=== PATIENT | female | born 2000 | race American Indian/Alaskan Native ===

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

== ENCOUNTER 2019-02-03 07:40 | Emergency (ER) | payer MEDICAID, OTHER ==
[2019-02-03 08:12] VITALS: BP 141/86
[2019-02-03] MEDS ORDERED: DUONEB *Not for PRN Use IH ONE (08:34)
--- NOTE | 2019-02-03 08:51 | Emergency Department Report ---
ED General Adult HPI - General Chief complaint: Adult Asthma Stated complaint: SAGE Time Seen by Provider: 02/03/19 08:27 Source: patient, EMS Mode of arrival: Stretcher Limitations: No Limitations - History of Present Illness Initial comments: The patient presents to emergency department for asthma attack. Patient has a history of asthma stating yesterday she began to have difficulty breathing. Patient denies adelso chest pain. Before arrival to the ED the patient had a DuoNeb breathing treatment, Solu-Medrol, and magnesium. Patient states she is greatly improved upon presentation. Patient also developed pain, headache. -: Sudden Radiation: non-radiation Severity scale (0 -10): 1 Quality: aching Consistency: constant Improves with: medication Worsens with: none Associated Symptoms: denies other symptoms Treatments Prior to Arrival: none - Related Data Previous Rx's Medication Instructions Recorded Last Taken Type Azithromycin [Zithromax] 250 mg PO DAILY #1 pkg 12/24/15 Unknown Rx Loratadine [Claritin] 10 mg PO DAILY #30 tablet 12/24/15 Unknown Rx Promethazine /Codeine 5 ml PO Q6H PRN #80 ml 12/24/15 Unknown Rx [Phenergan/Codeine 6.25-10 mg/5 ml] Clindamycin [Clindamycin CAP] 300 mg PO ONCE #30 capsule 08/05/16 Unknown Rx Ibuprofen [Motrin 600 MG tab] 600 mg PO Q8H PRN #20 tablet 08/05/16 Unknown Rx Albuterol Sulfate [Ventolin Hfa] 1 puff IH Q4H PRN #1 hfa.aer.ad 07/27/17 Unknown Rx Naproxen 500 mg PO BID PRN #30 tablet 07/27/17 Unknown Rx Sulfamethoxazole/Trimethoprim 1 each PO BID #14 tablet 07/27/17 Unknown Rx [Bactrim DS TAB] ALBUTEROL Inhaler (OR & NICU) 2 puff IH Q4HR PRN #1 inhalation 02/03/19 Unknown Rx [ProAir HFA Inhaler] predniSONE [Deltasone] 20 mg PO DAILY #15 tablet 02/03/19 Unknown Rx Allergies Allergy/AdvReac Type Severity Reaction Status Date / Time No Known Allergies Allergy Verified 02/03/19 08:00 ED Review of Systems ROS: Stated complaint: SAGE Other details as noted in HPI Comment: All other systems reviewed and negative Constitutional: denies: chills, fever Eyes: denies: eye pain, eye discharge, vision change ENT: denies: ear pain, throat pain Respiratory: shortness of breath, wheezing. denies: cough Cardiovascular: denies: chest pain, palpitations Endocrine: no symptoms reported Gastrointestinal: denies: abdominal pain, nausea, diarrhea Genitourinary: denies: urgency, dysuria, discharge Musculoskeletal: denies: back pain, joint swelling, arthralgia Skin: denies: rash, lesions Neurological: denies: headache, weakness, paresthesias Psychiatric: denies: anxiety, depression Hematological/Lymphatic: denies: easy bleeding, easy bruising ED Past Medical Hx - Past Medical History Hx Psychiatric Treatment: Yes (anxiety, bipolar) Hx Asthma: Yes Additional medical history: bronchitis, Right hand injury, Sickle Cell trait - Social History Smoking Status: Current Some Day Smoker Substance Use Type: Alcohol, Marijuana - Medications Home Medications: Home Medications Medication Instructions Recorded Confirmed Last Taken Type Azithromycin [Zithromax] 250 mg PO DAILY #1 pkg 12/24/15 Unknown Rx Loratadine [Claritin] 10 mg PO DAILY #30 tablet 12/24/15 Unknown Rx Promethazine /Codeine 5 ml PO Q6H PRN #80 ml 12/24/15 Unknown Rx [Phenergan/Codeine 6.25-10 mg/5 ml] Clindamycin [Clindamycin CAP] 300 mg PO ONCE #30 capsule 08/05/16 Unknown Rx Ibuprofen [Motrin 600 MG tab] 600 mg PO Q8H PRN #20 tablet 08/05/16 Unknown Rx Albuterol Sulfate [Ventolin Hfa] 1 puff IH Q4H PRN #1 hfa.aer.ad 07/27/17 Unknown Rx Naproxen 500 mg PO BID PRN #30 tablet 07/27/17 Unknown Rx Sulfamethoxazole/Trimethoprim 1 each PO BID #14 tablet 07/27/17 Unknown Rx [Bactrim DS TAB] ALBUTEROL Inhaler (OR & NICU) 2 puff IH Q4HR PRN #1 inhalation 02/03/19 Unknown Rx [ProAir HFA Inhaler] predniSONE [Deltasone] 20 mg PO DAILY #15 tablet 02/03/19 Unknown Rx ED Physical Exam - General Limitations: No Limitations General appearance: alert, in no apparent distress - Head Head exam: Present: atraumatic, normocephalic - Eye Eye exam: Present: normal appearance, PERRL, EOMI - ENT ENT exam: Present: mucous membranes moist - Neck Neck exam: Present: normal inspection - Respiratory Respiratory exam: Present: wheezes. Absent: respiratory distress - Cardiovascular Cardiovascular Exam: Present: regular rate, normal rhythm. Absent: systolic murmur, diastolic murmur, rubs, gallop - GI/Abdominal GI/Abdominal exam: Present: soft, normal bowel sounds. Absent: distended, tenderness - Extremities Exam Extremities exam: Present: normal inspection - Back Exam Back exam: Present: normal inspection - Neurological Exam Neurological exam: Present: alert, oriented X3, CN II-XII intact. Absent: motor sensory deficit - Psychiatric Psychiatric exam: Present: normal affect, normal mood - Skin Skin exam: Present: warm, dry, intact, normal color. Absent: rash ED Course Vital Signs 02/03/19 02/03/19 08:00 08:20 Temperature 98.4 F Pulse Rate 98 H Respiratory 24 18 Rate Blood Pressure 141/86 O2 Sat by Pulse 96 Oximetry ED Medical Decision Making - Medical Decision Making Repeat DuoNeb done in the ED Critical care attestation.: If time is entered above; I have spent that time in minutes in the direct care of this critically ill patient, excluding procedure time. ED Disposition Clinical Impression: Asthma attack Disposition: - TO HOME OR SELFCARE Is pt being admited?: No Does the pt Need Aspirin: No Condition: Stable Instructions: Asthma (ED) Additional Instructions: return if worse Referrals: PRIMARY CARE, [Referring] - 3-5 Days [facility] [Provider Group] - 3-5 Days [facility] [Provider Group] - 3-5 Days Time of Disposition: 10:26
== END 2019-02-03 11:14 | disposition home or self-care (01) ==
LOC: ED 07:40
DX: J45.909 Unspecified asthma, uncomplicated (principal); F17.200 Nicotine dependence, unspecified, uncomplicated; F12.10 Cannabis abuse, uncomplicated
CPT/HCPCS: 93005; 93010; 94640

== ENCOUNTER 2019-08-10 13:54 | Observation (INO) | payer MEDICAID, OTHER ==
[2019-08-10] MEDS ORDERED: SODIUM CHLORIDE 0.9% 1000 ML 1,000 ML IV ONE ×2 (14:54→16:20)
--- NOTE | 2019-08-10 14:57 | Event Note ---
ED Screening Note Date of service: 08/10/19 Time: 14:56 ED Screening Note: Pt complains of lower abdominal pain and heavy vaginal bleeding x today states 12 weeks denies urinary symptoms Hx of ectopic 2 years ago bleeding through 2 diapers today This initial assessment/diagnostic orders/clinical plan/treatment(s) is/are subject to change based on patients health status, clinical progression and re- assessment by fellow clinical providers in the ED. Further treatment and workup at subsequent clinical providers discretion. Patient/guardian urged not to elope from the ED as their condition may be serious if not clinically assessed and managed. Initial orders include:
--- NOTE | 2019-08-10 16:20 | Ultrasound Report ---
ULTRASOUND OBSTETRIC INDICATION / CLINICAL INFORMATION: possible miscarriage/ectopic. TECHNIQUE: Transabdominal and Transvaginal. COMPARISON: None available. FINDINGS: No intrauterine visualized. Uterus measures 12.3 x 3.9 x 5.2 cm. Thickened heterogeneous en dometrial complex measuring 3.3 cm in transverse diameter with small amount of hemorrhage/fluid is se en within the endometrial canal. ADNEXA: Right ovary appears within normal limits without cyst or mass measuring 2.9 x 1.6 x 2.4 cm. L eft ovary appears within normal limits measuring 3.2 x 1.4 x 2.2 cm. FREE FLUID: None. ADDITIONAL FINDINGS: Normal color Doppler and spectral waveforms are seen within both ovaries. IMPRESSION: 1. No intrauterine . 2. Moderately thickened complex endometrial stripe likely secondary to recent miscarriage. Clinical c orrelation with follow-up beta-hCG and ultrasound is recommended. Signer Name: Carloz Jenkins MD Signed: 08/10/2019 4:16 PM Workstation Name: [id number]
[2019-08-10 16:58] LABS: Alanine Aminotransferase 7 units/L (7-56); Albumin 3.9 g/dL (3.9-5); BUN/Creatinine Ratio 14; Blood Urea Nitrogen 7 mg/dL (7-17); Calcium 9.1 mg/dL (8.4-10.2); Hemolysis Index 87
[2019-08-10 17:11] LABS: Hematocrit 38.8 % (30.3-42.9); Hemoglobin 12.5 gm/dl (10.1-14.3); Mean Corpuscular HGB Conc 32 % (30-34); Mean Corpuscular Volume 73 fl (79-97); Platelet Count 299 K/mm3 (140-440); Red Blood Count 5.36 M/mm3 (3.65-5.03); Red Cell Distribution Width 15.4 % (13.2-15.2)
[2019-08-10 17:12] LABS: Bilirubin,Direct < 0.2 mg/dL (0-0.2)
[2019-08-10 17:23] LABS: INR 1.29 (0.87-1.13)
[2019-08-10 17:24] LABS: Partial Thromboplastin Time 40.5 Sec. (24.2-36.6)
[2019-08-10] MEDS ORDERED: miSOPROStol 25 MCG TAB VG ONE (17:56)
[2019-08-10] MEDS ORDERED: HYDROcodone/ACETAMINOPHEN 5-325 MG TAB PO ONE ×2 (17:58→19:36)
--- NOTE | 2019-08-10 18:02 | Emergency Department Report ---
ED HPI - General Chief complaint: Vaginal Bleeding Stated complaint: MISCARRIAGE/VAGINAL BLEEDING Time Seen by Provider: 08/10/19 16:12 Source: patient Mode of arrival: Ambulatory Limitations: No Limitations - History of Present Illness Initial comments: Patient is a 19-year-old female who is presenting with heavy vaginal bleeding for the past 2 days. 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 She has an appointment to see PROFESSOR OF OCEANOGRAPHY in 1 month. The patient has not had care so far. Patient states she has some lower abdominal cramping and she's passed multiple clots at home. Patient states she has some weakness and dizziness as well. She denies fevers chills dysuria chest pain or shortness of breath. - Related Data Previous Rx's Medication Instructions Recorded Last Taken Type Azithromycin [Zithromax] 250 mg PO DAILY #1 pkg 12/24/15 Unknown Rx Loratadine [Claritin] 10 mg PO DAILY #30 tablet 12/24/15 Unknown Rx Promethazine /Codeine 5 ml PO Q6H PRN #80 ml 12/24/15 Unknown Rx [Phenergan/Codeine 6.25-10 mg/5 ml] Clindamycin [Clindamycin CAP] 300 mg PO ONCE #30 capsule 08/05/16 Unknown Rx Ibuprofen [Motrin 600 MG tab] 600 mg PO Q8H PRN #20 tablet 08/05/16 Unknown Rx Albuterol Sulfate [Ventolin Hfa] 1 puff IH Q4H PRN #1 hfa.aer.ad 07/27/17 Unknown Rx Naproxen 500 mg PO BID PRN #30 tablet 07/27/17 Unknown Rx Sulfamethoxazole/Trimethoprim 1 each PO BID #14 tablet 07/27/17 Unknown Rx [Bactrim DS TAB] ALBUTEROL Inhaler (OR & NICU) 2 puff IH Q4HR PRN #1 inhalation 02/03/19 Unknown Rx [ProAir HFA Inhaler] predniSONE [Deltasone] 20 mg PO DAILY #15 tablet 02/03/19 Unknown Rx Allergies Allergy/AdvReac Type Severity Reaction Status Date / Time No Known Allergies Allergy Verified 02/03/19 08:00 ED Review of Systems ROS: Stated complaint: MISCARRIAGE/VAGINAL BLEEDING Other details as noted in HPI Comment: All other systems reviewed and negative ED Past Medical Hx - Past Medical History Hx Psychiatric Treatment: Yes (anxiety, bipolar) Hx Asthma: Yes Additional medical history: bronchitis, Right hand injury - Social History Smoking Status: Current Every Day Smoker Substance Use Type: None - Medications Home Medications: Home Medications Medication Instructions Recorded Confirmed Last Taken Type Azithromycin [Zithromax] 250 mg PO DAILY #1 pkg 12/24/15 Unknown Rx Loratadine [Claritin] 10 mg PO DAILY #30 tablet 12/24/15 Unknown Rx Promethazine /Codeine 5 ml PO Q6H PRN #80 ml 12/24/15 Unknown Rx [Phenergan/Codeine 6.25-10 mg/5 ml] Clindamycin [Clindamycin CAP] 300 mg PO ONCE #30 capsule 08/05/16 Unknown Rx Ibuprofen [Motrin 600 MG tab] 600 mg PO Q8H PRN #20 tablet 08/05/16 Unknown Rx Albuterol Sulfate [Ventolin Hfa] 1 puff IH Q4H PRN #1 hfa.aer.ad 07/27/17 Unknown Rx Naproxen 500 mg PO BID PRN #30 tablet 07/27/17 Unknown Rx Sulfamethoxazole/Trimethoprim 1 each PO BID #14 tablet 07/27/17 Unknown Rx [Bactrim DS TAB] ALBUTEROL Inhaler (OR & NICU) 2 puff IH Q4HR PRN #1 inhalation 02/03/19 Unknown Rx [ProAir HFA Inhaler] predniSONE [Deltasone] 20 mg PO DAILY #15 tablet 02/03/19 Unknown Rx ED Physical Exam - General Limitations: No Limitations General appearance: alert, lethargic - Head Head exam: Present: atraumatic, normocephalic - Eye Eye exam: Present: normal appearance, PERRL, EOMI - ENT ENT exam: Present: mucous membranes moist - Neck Neck exam: Present: normal inspection - Respiratory Respiratory exam: Present: normal lung sounds bilaterally. Absent: respiratory distress, wheezes, rales, rhonchi - Cardiovascular Cardiovascular Exam: Present: regular rate, normal rhythm. Absent: systolic murmur, diastolic murmur, rubs, gallop - GI/Abdominal GI/Abdominal exam: Present: soft, normal bowel sounds. Absent: distended, tenderness, guarding, rebound - External exam: Present: normal external exam Speculum exam: Present: vaginal bleeding (patient with a large clot in the vagi nal vault which was removed. There is a probable clot at the os. There is a slight trickle of blood from the os after the clot was removed but the vaginal vault is not filling up very fast after the clot was removed) - Extremities Exam Extremities exam: Present: normal inspection - Back Exam Back exam: Present: normal inspection - Neurological Exam Neurological exam: Present: alert, oriented X3 - Psychiatric Psychiatric exam: Present: normal affect, normal mood - Skin Skin exam: Present: warm, dry, intact, normal color. Absent: rash ED Course Vital Signs 08/10/19 08/10/19 08/10/19 14:15 17:22 18:17 Temperature 98.2 F Pulse Rate 131 H 109 H 94 H Respiratory 18 12 18 Rate Blood Pressure 94/61 Blood Pressure 120/78 110/62 [Left] O2 Sat by Pulse 98 100 99 Oximetry - Reevaluation(s) Reevaluation #1: 08/10/19 17:58 Dr. Crandall has been consulted at this time. Patient's blood pressure and heart rate are improving. Dr. Crandall stated that the patient should receive Cytotec vaginally and we should recheck the hemoglobin. We'll continue to monitor the patient. Reevaluation #2: 08/10/19 19:45 Patient's hemoglobin dropped 2 g and approximate 2 hours. Patient's continued to have some clotting in and now the patient is also complaining of some i ncreased lower abdominal discomfort. The patient be admitted to mother-baby. Patient will be monitored and may be a candidate for a D&C ED Medical Decision Making - Lab Data Result diagrams: 08/10/19 18:24 08/10/19 15:55 Lab Results 08/10/19 08/10/19 08/10/19 Range/Units 15:55 15:55 15:55 WBC 6.4 (4.5-11.0) K/mm3 RBC 5.36 H (3.65-5.03) M/mm3 Hgb 12.5 (10.1-14.3) gm/dl Hct 38.8 (30.3-42.9) % MCV 73 L (79-97) fl MCH 23 L (28-32) pg MCHC 32 (30-34) % RDW 15.4 H (13.2-15.2) % Plt Count 299 (140-440) K/mm3 PT 15.9 H (12.2-14.9) Sec. INR 1.29 H (0.87-1.13) APTT 40.5 H (24.2-36.6) Sec. Sodium 135 L (137-145) mmol/L Potassium 4.3 (3.6-5.0) mmol/L Chloride 102.5 (98-107) mmol/L Carbon Dioxide 20 L (22-30) mmol/L Anion Gap 17 mmol/L BUN 7 (7-17) mg/dL Creatinine 0.5 L (0.7-1.2) mg/dL Estimated GFR > 60 ml/min BUN/Creatinine Ratio 14 % Glucose 88 (65-100) mg/dL Calcium 9.1 (8.4-10.2) mg/dL Total Bilirubin 0.50 (0.1-1.2) mg/dL Direct Bilirubin < 0.2 (0-0.2) mg/dL Indirect Bilirubin 0.3 mg/dL AST 20 (5-40) units/L ALT 7 (7-56) units/L Alkaline Phosphatase 57 (35-129) units/L Total Protein 6.6 (6.3-8.2) g/dL Albumin 3.9 (3.9-5) g/dL Albumin/Globulin Ratio 1.4 % HCG, Quant (0-4) mIU/mL Blood Type 08/10/19 08/10/19 Range/Units 15:55 Unknown WBC (4.5-11.0) K/mm3 RBC (3.65-5.03) M/mm3 Hgb (10.1-14.3) gm/dl Hct (30.3-42.9) % MCV (79-97) fl MCH (28-32) pg MCHC (30-34) % RDW (13.2-15.2) % Plt Count (140-440) K/mm3 PT (12.2-14.9) Sec. INR (0.87-1.13) APTT (24.2-36.6) Sec. Sodium (137-145) mmol/L Potassium (3.6-5.0) mmol/L Chloride (98-107) mmol/L Carbon Dioxide (22-30) mmol/L Anion Gap mmol/L BUN (7-17) mg/dL Creatinine (0.7-1.2) mg/dL Estimated GFR ml/min BUN/Creatinine Ratio % Glucose (65-100) mg/dL Calcium (8.4-10.2) mg/dL Total Bilirubin (0.1-1.2) mg/dL Direct Bilirubin (0-0.2) mg/dL Indirect Bilirubin mg/dL AST (5-40) units/L ALT (7-56) units/L Alkaline Phosphatase (35-129) units/L Total Protein (6.3-8.2) g/dL Albumin (3.9-5) g/dL Albumin/Globulin Ratio % HCG, Quant 5370 H (0-4) mIU/mL Blood Type B POSITIVE - Radiology Data ULTRASOUND OBSTETRIC INDICATION / CLINICAL INFORMATION: possible miscarriage/ectopic. TECHNIQUE: Transabdominal and Transvaginal. COMPARISON: None available. FINDINGS: No intrauterine visualized. Uterus measures 12.3 x 3.9 x 5.2 cm. Thickened heterogeneous endometrial complex measuring 3.3 cm in transverse diameter with small amount of hemorrhage/fluid is seen within the endometrial canal. ADNEXA: Right ovary appears within normal limits without cyst or mass measuring 2.9 x 1.6 x 2.4 cm. Left ovary appears within normal limits measuring 3.2 x 1.4 x 2.2 cm. FREE FLUID: None. ADDITIONAL FINDINGS: Normal color Doppler and spectral waveforms are seen within both ovaries. IMPRESSION: 1. No intrauterine . 2. Moderately thickened complex endometrial stripe likely secondary to recent miscarriage. Clinical correlation with follow-up beta-hCG and ultrasound is recommended. Signer Name: Carloz Jenkins MD Signed: 08/10/2019 4:16 PM Critical Care Time: Yes (30) Critical care attestation.: If time is entered above; I have spent that time in minutes in the direct care of this critically ill patient, excluding procedure time. ED Disposition Clinical Impression: Spontaneous miscarriage, Hypotension due to blood loss Disposition: OP ADMIT IP TO THIS HOSP Is pt being admited?: Yes Does the pt Need Aspirin: No Condition: Stable Time of Disposition: 19:46
[2019-08-10 19:08] LABS: Hematocrit 34.4 % (30.3-42.9); Hemoglobin 10.6 gm/dl (10.1-14.3)
[2019-08-10] MEDS ORDERED: SODIUM CHLORIDE 0.9% 1000 ML 1,000 ML IV SCH (20:00)
[2019-08-10] MEDS ORDERED: LACTATED RINGERS 1,000 ML IV SCH (23:00)
--- NOTE | 2019-08-10 23:29 | History and Physical Report ---
History of Present Illness Date of examination: 08/10/19 Date of admission: 08/10/19 19:47 Chief complaint: Miscarriage History of present illness: requested that CNM see patient. Patient is a 19 [address] patient of Dr. Crandall that was admitted from the ED this evening after first trimester miscarriage. Patient states that her vaginal bleeding began 2 days ago and was accompanied by clotting and cramping. Patient reports that she passed a large amount of clots and blood vaginally prior to coming to ED. Patient denies fever, chills, nausea or vomiting. She denies foul smelling vaginal discharge. Dr. Crandall states patient has had a miscarriage and is being admitted overnight tonight to observe for bleeding. 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 denies: prescription drug abuse, IV drug use - Obstetrical History Expected Date of Delivery: 02/05/20 Actual Gestation: 14 Week(s) 3 Day(s) : 2 Para: 0 Hx # Term Pregnancies: 0 Number of Pregnancies: 0 Spontaneous Abortions: 2 (2 SABs ) Induced : 0 Number of Living Children: 0 Medications and Allergies Allergies Allergy/AdvReac Type Severity Reaction Status Date / Time No Known Allergies Allergy Verified 02/03/19 08:00 Home Medications Medication Instructions Recorded Confirmed Last Taken Type Azithromycin [Zithromax] 250 mg PO DAILY #1 pkg 12/24/15 08/10/19 Unknown Rx Loratadine [Claritin] 10 mg PO DAILY #30 tablet 12/24/15 Unknown Rx Promethazine /Codeine 5 ml PO Q6H PRN #80 ml 12/24/15 Unknown Rx [Phenergan/Codeine 6.25-10 mg/5 ml] Clindamycin [Clindamycin CAP] 300 mg PO ONCE #30 capsule 08/05/16 08/10/19 U nknown Rx Ibuprofen [Motrin 600 MG tab] 600 mg PO Q8H PRN #20 tablet 08/05/16 Unknown Rx Albuterol Sulfate [Ventolin Hfa] 1 puff IH Q4H PRN #1 hfa.aer.ad 07/27/17 Unknown Rx Naproxen 500 mg PO BID PRN #30 tablet 07/27/17 Unknown Rx Sulfamethoxazole/Trimethoprim 1 each PO BID #14 tablet 07/27/17 Unknown Rx [Bactrim DS TAB] ALBUTEROL Inhaler (OR & NICU) 2 puff IH Q4HR PRN #1 inhalation 02/03/19 Unknown Rx [ProAir HFA Inhaler] predniSONE [Deltasone] 20 mg PO DAILY #15 tablet 02/03/19 Unknown Rx Active Meds: Active Medications Acetaminophen/Hydrocodone Bitart ([place] 5/325) 1 each PO Q6H PRN PRN Reason: Pain, Moderate (4-6) Lactated Ringer's (Lactated Ringers) 1,000 mls @ 125 mls/hr IV DIRECT ALEXEY Misoprostol (Cytotec) 200 mcg PO Q8HR ALEXEY Review of Systems All systems: negative (vaginal bleeding with passage of clots, pelvic cramping) - Vital Signs Vital signs: Vital Signs Temp Pulse Resp BP Pulse Ox 98.2 F 131 H 18 94/61 98 08/10/19 14:15 08/10/19 14:15 08/10/19 14:15 08/10/19 14:15 08/10/19 14:15 Temp Pulse Resp BP Pulse Ox 98.2 F 96 H 18 108/59 100 08/10/19 21:24 08/10/19 21:24 08/10/19 21:24 08/10/19 21:24 08/10/19 21:24 - Physical Exam Cardiovascular: Regular rate, Normal S1, Normal S2, No murmurs Lungs: Positive: Clear to auscultation Abdomen: Positive: normal appearance, soft, normal bowel sounds. Negative: distention, tenderness, guarding, rigidity Genitourinary (Female): Positive: other (patient had done at ED this evening) Extremities: Positive: normal. Negative: tenderness, edema Results Result Diagrams: 08/10/19 18:24 08/10/19 15:55 Abnormal lab results 08/10/19 08/10/19 08/10/19 Range/Units 15:55 15:55 15:55 RBC 5.36 H (3.65-5.03) M/mm3 MCV 73 L (79-97) fl MCH 23 L (28-32) pg RDW 15.4 H (13.2-15.2) % PT 15.9 H (12.2-14.9) Sec. INR 1.29 H (0.87-1.13) APTT 40.5 H (24.2-36.6) Sec. Sodium 135 L (137-145) mmol/L Carbon Dioxide 20 L (22-30) mmol/L Creatinine 0.5 L (0.7-1.2) mg/dL HCG, Quant (0-4) mIU/mL 08/10/19 Range/Units Unknown RBC (3.65-5.03) M/mm3 MCV (79-97) fl MCH (28-32) pg RDW (13.2-15.2) % PT (12.2-14.9) Sec. INR (0.87-1.13) APTT (24.2-36.6) Sec. Sodium (137-145) mmol/L Carbon Dioxide (22-30) mmol/L Creatinine (0.7-1.2) mg/dL HCG, Quant 5370 H (0-4) mIU/mL All other labs normal. Assessment and Plan A: Spontaneous . Anemia. P: Admit for observation overnight per Dr. Crandall's order. Pain medication as needed. IV hydration. Dr. Crandall orders PO Cytotec (order put in by RN).
[2019-08-10] MEDS ORDERED: IBUPROFEN 800 MG TAB PO PRN (23:34)
[2019-08-11] MEDS: miSOPROStol 200 MCG TAB PO SCH ×2 (02:08→09:13)
[2019-08-11] MEDS: HYDROcodone/ACETAMINOPHEN 5-325 MG TAB PO PRN ×2 (04:03→13:34)
--- NOTE | 2019-08-11 13:25 | Progress Note ---
Subjective - Subjective Date of service: 08/11/19 Principal diagnosis: incomplete Interval history: Patietn seen and examined no VB no pelvic pain toelrating PO, afebril AAOx3 SP Cytotec [id number] doses PO for incomplete US reviewed, no POC, no tissues, +ve blood clot in endometrium otherwise WNL VSS RRR LCTAb Abd: Soft, NT pelvic deferred Ext WNL LAbs and US reviewed A: Incomplete P: d/c home Cytotec 200mcg PO Q8 hours X4 doses Follow up office in one week [place]/ibuprofen for pain meets discharge criteria Yasmin Harrison MD Objective - Vital Signs Vital Signs: Vital Signs - 12hr 08/11/19 08/11/19 08/11/19 03:53 08:10 11:59 Temperature 98.8 F 98.5 F 98.4 F Pulse Rate 98 H 93 H 91 H Respiratory 20 18 18 Rate Blood Pressure 111/66 138/58 105/57 O2 Sat by Pulse 99 98 100 Oximetry - Labs Labs: Abnormal Labs 08/10/19 08/10/19 08/10/19 15:55 15:55 15:55 RBC 5.36 H MCV 73 L MCH 23 L RDW 15.4 H PT 15.9 H INR 1.29 H APTT 40.5 H Sodium 135 L Carbon Dioxide 20 L Creatinine 0.5 L HCG, Quant 08/10/19 Unknown RBC MCV MCH RDW PT INR APTT Sodium Carbon Dioxide Creatinine HCG, Quant 5370 H Laboratory Results - last 24 hr 08/10/19 08/10/19 08/10/19 15:55 15:55 15:55 WBC 6.4 RBC 5.36 H Hgb 12.5 Hct 38.8 MCV 73 L MCH 23 L MCHC 32 RDW 15.4 H Plt Count 299 PT 15.9 H INR 1.29 H APTT 40.5 H Sodium 135 L Potassium 4.3 Chloride 102.5 Carbon Dioxide 20 L Anion Gap 17 BUN 7 Creatinine 0.5 L Estimated GFR > 60 BUN/Creatinine Ratio 14 Glucose 88 Calcium 9.1 Total Bilirubin 0.50 Direct Bilirubin < 0.2 Indirect Bilirubin 0.3 AST 20 ALT 7 Alkaline Phosphatase 57 Total Protein 6.6 Albumin 3.9 Albumin/Globulin Ratio 1.4 HCG, Quant Blood Type Antibody Screen 08/10/19 08/10/19 08/10/19 15:55 18:24 Unknown WBC RBC Hgb 10.6 Hct 34.4 MCV MCH MCHC RDW Plt Count PT INR APTT Sodium Potassium Chloride Carbon Dioxide Anion Gap BUN Creatinine Estimated GFR BUN/Creatinine Ratio Glucose Calcium Total Bilirubin Direct Bilirubin Indirect Bilirubin AST ALT Alkaline Phosphatase Total Protein Albumin Albumin/Globulin Ratio HCG, Quant 5370 H Blood Type B POSITIVE Antibody Screen Negative
[2019-08-11 17:59] VITALS: BP 96/49
== END 2019-08-11 17:10 | disposition home or self-care (01) ==
LOC: ED 13:54 → OB 19:47
PROVIDERS: ADMIT Obstetrics & Gynecology; ATTEND Obstetrics & Gynecology
DX: O03.9 Complete or unspecified spontaneous abortion without complication (principal); I95.89 Other hypotension; O99.012 Anemia complicating pregnancy, second trimester; J45.909 Unspecified asthma, uncomplicated; F17.200 Nicotine dependence, unspecified, uncomplicated; Z3A.14 14 weeks gestation of pregnancy
CPT/HCPCS: 36415; 76801; 76817; 80048; 80076; 84702; 85014; 85018; 85027; 85610; 85730; 86850; 86900; 86901; 96360; 96361; 99291; G0378; J7030; J7120; 76805

== ENCOUNTER 2021-07-23 12:50 | Emergency (ER) | payer SELFPAY ==
[2021-07-23 12:58] VITALS: BP 131/86
[2021-07-23] MEDS ORDERED: ONDANSETRON 4 MG/2 ML INJ IV ONE (13:55)
[2021-07-23] MEDS ORDERED: KETOROLAC 30 MG/1 ML INJ IV ONE (13:55)
[2021-07-23] MEDS ORDERED: SODIUM CHLORIDE 0.9% 1000 ML 1,000 ML IV ONE (13:56)
[2021-07-23 14:35] LABS: Hematocrit 40.3 % (30.3-42.9); Hemoglobin 13.5 gm/dl (10.1-14.3); Mean Corpuscular HGB Conc 34 % (30-34); Platelet Count 329 K/mm3 (140-440); Red Blood Count 5.91 M/mm3 (3.65-5.03); Red Cell Distribution Width 13.8 % (13.2-15.2)
[2021-07-23 14:47] LABS: Mean Corpuscular Volume 68 fl (79-97)
--- NOTE | 2021-07-23 14:58 | Emergency Department Report ---
ED Abdominal Pain HPI - General Chief Complaint: Abdominal Pain Stated Complaint: ABD PAIN,SICK Time Seen by Provider: 07/23/21 13:16 Source: EMS Mode of arrival: Stretcher Limitations: No Limitations - History of Present Illness Initial Comments: 21-year-old female presents to ED with vomiting and left flank pain. Patient states 5 days ago she took some "bad ecstasy "and began feeling bad afterward. Patient states she has been having nausea, vomiting, diarrhea, and left flank pain. Patient denies fever, urinary frequency, dysuria. MD Complaint: flank pain -: days(s) (5) Location: L flank Radiation: none Migration to: no migration Severity: moderate Severity scale (0 -10): 10 Quality: aching Consistency: constant Improves With: nothing Worsens With: nothing Associated Symptoms: nausea, vomiting, diarrhea. denies: fever, dysuria - Related Data Previous Rx's Medication Instructions Recorded Last Taken Type Azithromycin [Zithromax] 250 mg PO DAILY #1 pkg 12/24/15 Unknown Rx Loratadine (Nf) [Claritin] 10 mg PO DAILY #30 tablet 12/24/15 Unknown Rx Promethazine /Codeine 5 ml PO Q6H PRN #80 ml 12/24/15 Unknown Rx [Phenergan/Codeine 6.25-10 mg/5 ml] Clindamycin [Clindamycin CAP] 300 mg PO ONCE #30 capsule 08/05/16 Unknown Rx Ibuprofen [Motrin 600 MG tab] 600 mg PO Q8H PRN #20 tablet 08/05/16 Unknown Rx Albuterol Sulfate [Ventolin Hfa] 1 puff IH Q4H PRN #1 hfa.aer.ad 07/27/17 Unknown Rx Naproxen 500 mg PO BID PRN #30 tablet 07/27/17 Unknown Rx Sulfamethoxazole/Trimethoprim 1 each PO BID #14 tablet 07/27/17 Unknown Rx [Bactrim DS TAB] Albuterol Mdi (or & Nicu Only) 2 puff IH Q4HR PRN #1 inhalation 02/03/19 Unknown Rx [ProAir HFA Inhaler] predniSONE [Deltasone] 20 mg PO DAILY #15 tablet 02/03/19 Unknown Rx HYDROcodone/APAP 5-325 [[place] 1 each PO Q6H PRN #30 tablet 08/11/19 Unknown Rx 5-325 mg TAB] Ibuprofen [Motrin 800 MG tab] 800 mg PO Q8H PRN #30 tablet 08/11/19 Unknown Rx miSOPROStoL [Cytotec] 200 mcg PO Q8HR #4 tablet 08/11/19 Unknown Rx Allergies Allergy/AdvReac Type Severity Reaction Status Date / Time No Known Allergies Allergy Verified 02/03/19 08:00 ED Review of Systems ROS: Stated complaint: ABD PAIN,SICK Other details as noted in HPI Comment: All other systems reviewed and negative Constitutional: denies: fever Gastrointestinal: nausea, vomiting Genitourinary: denies: dysuria, frequency Musculoskeletal: back pain ED Past Medical Hx - Past Medical History Hx Congestive Heart Failure: No Hx Diabetes: No Hx Psychiatric Treatment: Yes (anxiety, bipolar) Hx Asthma: Yes Hx COPD: No Hx HIV: No Additional medical history: bronchitis, Right hand injury - Social History Smoking Status: Current Every Day Smoker - Medications Home Medications: Home Medications Medication Instructions Recorded Confirmed Last Taken Type Azithromycin [Zithromax] 250 mg PO DAILY #1 pkg 12/24/15 08/10/19 Unknown Rx Loratadine (Nf) [Claritin] 10 mg PO DAILY #30 tablet 12/24/15 Unknown Rx Promethazine /Codeine 5 ml PO Q6H PRN #80 ml 12/24/15 Unknown Rx [Phenergan/Codeine 6.25-10 mg/5 ml] Clindamycin [Clindamycin CAP] 300 mg PO ONCE #30 capsule 08/05/16 08/10/19 Unknown Rx Ibuprofen [Motrin 600 MG tab] 600 mg PO Q8H PRN #20 tablet 08/05/16 Unknown Rx Albuterol Sulfate [Ventolin Hfa] 1 puff IH Q4H PRN #1 hfa.aer.ad 07/27/17 Unknown Rx Naproxen 500 mg PO BID PRN #30 tablet 07/27/17 Unknown Rx Sulfamethoxazole/Trimethoprim 1 each PO BID #14 tablet 07/27/17 Unknown Rx [Bactrim DS TAB] Albuterol Mdi (or & Nicu Only) 2 puff IH Q4HR PRN #1 inhalation 02/03/19 Unknown Rx [ProAir HFA Inhaler] predniSONE [Deltasone] 20 mg PO DAILY #15 tablet 02/03/19 Unknown Rx HYDROcodone/APAP 5-325 [[place] 1 each PO Q6H PRN #30 tablet 08/11/19 Unknown Rx 5-325 mg TAB] Ibuprofen [Motrin 800 MG tab] 800 mg PO Q8H PRN #30 tablet 08/11/19 Unknown Rx miSOPROStoL [Cytotec] 200 mcg PO Q8HR #4 tablet 08/11/19 Unknown Rx ED Physical Exam - General Limitations: No Limitations General appearance: alert, in no apparent distress - Head Head exam: Present: atraumatic, normocephalic - Eye Eye exam: Present: normal appearance, EOMI - ENT ENT exam: Present: mucous membranes moist - Neck Neck exam: Present: normal inspection - Respiratory Respiratory exam: Present: normal lung sounds bilaterally. Absent: respiratory distress - Cardiovascular Cardiovascular Exam: Present: regular rate, normal rhythm - GI/Abdominal GI/Abdominal exam: Present: soft, tenderness (Mild suprapubic). Absent: distended - Extremities Exam Extremities exam: Present: normal inspection - Back Exam Back exam: Present: CVA tenderness (L). Absent: CVA tenderness (R) - Neurological Exam Neurological exam: Present: alert, oriented X3 - Psychiatric Psychiatric exam: Present: normal affect, normal mood - Skin Skin exam: Present: warm, dry, intact, normal color ED Course Vital Signs 07/23/21 07/23/21 12:54 14:34 Temperature 98.7 F Pulse Rate 90 Respiratory 18 16 Rate Blood Pressure 131/86 [Left] O2 Sat by Pulse 99 Oximetry ED Medical Decision Making - Lab Data Result diagrams: 07/23/21 14:15 07/23/21 14:15 - Radiology Data Radiology results: report reviewed, image reviewed - Medical Decision Making 21-year-old female presents to ED with vomiting and left flank pain. Patient states 5 days ago she took some "bad ecstasy "and began feeling bad afterward. Patient states she has been having nausea, vomiting, diarrhea, and left flank pain. Patient denies fever, urinary frequency, dysuria. Vital signs normal. Patient has leukocytosis of 24. Patient was given IV fluid bolus, Toradol, Zofran. No emesis here in the ED. CT scan shows possible colitis however patient is having no abdominal pain. Patient was asked multiple times for urine sample. When she finally gave urine, the amount was not enough. Patient stated that she had some Powerade that she could drain. Advised patient to drink or Powerade or we would have to get a cath UA which patient refused. Ultimately, patient apparently ended up eloping, prior to giving another urine sample, prior to receiving any antibiotics, prior to getting her CT scan results. - Differential Diagnosis Gastroenteritis, UTI, pyelonephritis Critical care attestation.: If time is entered above; I have spent that time in minutes in the direct care of this critically ill patient, excluding procedure time. ED Disposition Clinical Impression: Flank pain, Nausea & vomiting Disposition: 07 LEFT AWOL/ELOPED Is pt being admited?: No Condition: Stable Instructions: Abdominal Pain (ED) Referrals: PRIMARY CARE, [Primary Care Provider] - 3-5 Days
[2021-07-23 14:59] LABS: Alanine Aminotransferase 12 units/L (7-56); Albumin 3.8 g/dL (3.9-5); Blood Urea Nitrogen 9 mg/dL (7-17); Hemolysis Index 143
[2021-07-23 15:01] LABS: BUN/Creatinine Ratio 13; Bilirubin,Direct < 0.2 mg/dL (0-0.2)
[2021-07-23 15:50] LABS: Total Cells Counted 100
[2021-07-23 15:51] LABS: Band Neutrophils # (Manual) 0.7 K/mm3; RBC Morphology Normal
--- NOTE | 2021-07-23 16:28 | Cat Scan Report ---
CT ABDOMEN AND PELVIS WITHOUT CONTRAST INDICATION: L flank pain CONTRAST: Without IV COMPARISON: None available. All CT scans at this location are performed using CT dose reduction for ALARA by means of automated e xposure control. FINDINGS: Lung au are clear of acute infiltrates. No pneumoperitoneum is seen. Fatty infiltration of the liver is noted. Liver is enlarged in volume and has a length of 19 cm. No focal lesions are o bvious. Spleen is not enlarged. No abdominal masses are seen. No obvious lymphadenopathy is noted. No evidence of bowel obstruction is seen. Gallbladder and bile ducts appear within normal limits. A subcutaneous nodule with a lobular appearance is seen in the upper left anterior pelvic wall measur ing 2.1 cm without calcification. No similar nodules are seen. No urinary tract calculi or evidence of obstruction are seen. No pelvic masses are noted. The proximal and mid right colon has an unusual appearance suggesting wall edema though I do not see surrounding inflammation. No evidence of perforation is seen. No obstructive changes are noted. IMPRESSION: 1. Right colon shows probable wall edema of concern for colitis though this does not appear to match with the given left-sided symptomatology. Thickening and decreased density wall possibly this relates to fat but has an unusual appearance. I do not see a similar appearance of other portions of colon o r small bowel. 2. Unusual subcutaneous nodule in the anterior left pelvic wall. Possibly this relates to an injectio n granuloma but no other similar abnormalities are seen. A neoplastic lesion is not excluded despite the patient's age and clinical correlation is suggested. 3. No obvious acute abnormality is seen to account for the history of left flank pain Signer Name: Grant Dao MD Signed: 07/23/2021 4:24 PM Workstation Name: [id number]
== END 2021-07-23 15:15 | disposition left against medical advice (07) ==
LOC: ED 12:50
DX: R10.9 Unspecified abdominal pain (principal); R11.2 Nausea with vomiting, unspecified; J45.909 Unspecified asthma, uncomplicated; F17.200 Nicotine dependence, unspecified, uncomplicated
CPT/HCPCS: 36415; 74176; 80048; 80076; 83690; 84703; 85007; 85025; 96361; 96374; 96375; 99284; J1885; J2405; J7030